=== PATIENT | female | born 1960 | race Caucasian/White ===

== ENCOUNTER 2018-02-26 10:38 | Emergency (ER) | payer SELFPAY ==
[~2018-02-26] VITALS: Wt 91.9 kg
[2018-02-26 10:45] VITALS: BP 140/74; PULSE 91; RESP 17
[2018-02-26] MEDS ORDERED: AZIT250T PO (11:25)
[2018-02-26] MEDS ORDERED: PROM6.2515 PO (11:25)
[2018-02-26] MEDS ORDERED: ALBU8.5H8 INH (11:25)
[2018-02-26] MEDS ORDERED: BENZ-6 PO (11:25)
[2018-02-26] MEDS ORDERED: DOCO2CRE3 TOP (11:25)
--- NOTE | 2018-02-26 12:49 | ERD ---
ER Documentation Chief Complaint Chief Complaint COUGH, CONGESTION, THROAT PAIN X2 WEEKS HPI 57-year-old female presenting with cough and vomiting. Patient has a runny nose and sore throat. She has had no changes in urination or bowel mood. Denies abdominal pain. No fevers documented however feels feverish. Denies use of antipyretics however has taken Robitussin. Denies medical problems. NKDA. Surgical history is fibroidectomy. Social history denies ROS All systems reviewed and are negative except as per history of present illness. Medications Home Meds Active Scripts Azithromycin* (Zithromax*) 250 Mg Tablet, 250 MG PO .ZPACK DIRECTED, #6 TAB TAKE 500 MG (2 TABS) THE FIRST DAY THEN 250 MG (1 TAB) DAYS 2-5 Prov:NONI PINEDA PA-C 02/26/18 Albuterol Sulfate* (Proair HFA*) 8.5 Gm Hfa.aer.ad, 2 PUFF INH Q4, #1 INHALER Prov:NONI PINEDA PA-C 02/26/18 Promethazine Hcl* (Promethazine Hcl* Syrup) 6.25 Mg/5 Ml Syrup, 6.25 MG PO Q6H PRN for COUGH, #100 ML Prov:NONI PINEDA PA-C 02/26/18 Benzonatate* (Tessalon Perle*) 100 Mg Capsule, 100 MG PO Q8H PRN for COUGH, #30 CAP Prov:NONI PINEDA PA-C 02/26/18 Docosanol (Abreva) 2 Gm Cream.gm., 1 APPLIC TOP 5 TIMES DAILY, #1 TUB Prov:NONI PINEDA PA-C 02/26/18 Allergies Allergies: Coded Allergies: No Known Allergy (Unverified , 02/26/18) PMhx/Soc Medical and Surgical Hx: pt denies Medical Hx, pt denies Surgical Hx Hx Alcohol Use: No Hx Substance Use: No Hx Tobacco Use: No Smoking Status: Never smoker FmHx Family History: No diabetes, No coronary disease, No other Physical Exam Vitals Vital Signs Date Temp Pulse Resp B/P (MAP) Pulse Ox O2 O2 Flow FiO2 Time Delivery Rate 02/26/18 98.5 91 17 140/74 98 10:45 (96) Physical Exam GENERAL: The patient is well-appearing, well-nourished, in no acute distress HEENT: Atraumatic. Conjunctivae are pink. Pupils equal, round, and reactive to light. There is no scleral icterus. Tympanic membranes clear bilaterally. Oropharynx clear. No nystagmus or photophobia. NECK: C-spine is soft and supple. There is no meningismus. There is no cervical lymphadenopathy. CHEST: Clear to auscultation bilaterally. There are no rales, wheezes or rhonchi. HEART: Regular rate and rhythm. No murmurs, clicks, rubs or gallops. No S3 or S4. Procedures/MDM MDM: 57-year-old female presenting with URI type symptoms. I have low suspicion for pneumonia. I have low suspicion for respiratory distress or hypoxia. I have low suspicion for meningitis or sepsis. Patient symptoms are likely viral. Patient is given prescription for antibiotics progress or worsen she may fill medications. Patient is otherwise told to take supportive medications. I do not feel blood work or imaging is indicated. Patient is discharged stricter precautions and told to follow-up with primary care. All questions answered at discharge Departure Diagnosis: Primary Impression: Upper respiratory infection Condition: Stable Patient Instructions: Preventing Common Respiratory Infections Referrals: [facility] YOU HAVE RECEIVED A MEDICAL SCREENING EXAM AND THE RESULTS INDICATE THAT YOU DO NOT HAVE A CONDITION THAT REQUIRES URGENT TREATMENT IN THE EMERGENCY DEPARTMENT. FURTHER EVALUATION AND TREATMENT OF YOUR CONDITION CAN WAIT UNTIL YOU ARE SEEN IN YOUR DOCTORS OFFICE WITHIN THE NEXT 1-2 DAYS. IT IS YOUR RESPONSIBILITY TO MAKE AN APPOINTMENT FOR FOLOW-UP CARE. IF YOU HAVE A PRIMARY DOCTOR --you should call your primary doctor and schedule an appointment IF YOU DO NOT HAVE A PRIMARY DOCTOR YOU CAN CALL OUR PHYSICIAN REFERRAL HOTLINE AT IF YOU CAN NOT AFFORD TO SEE A PHYSICIAN YOU CAN CHOSE FROM THE FOLLOWING [facility] CLINICS [facility] [id number] [facility] [address] [facility] [address] [facility] [address] [facility] [address] [facility]. [facility] [address] Additional Instructions: FOLLOW UP WITH YOUR PRIMARY CARE PHYSICIAN TOMORROW.Return to this facility if you are not improving as expected. NONI PINEDA PA-C Feb 26, 2018 12:49
== END 2018-02-26 11:42 | disposition home or self-care (01) ==
LOC: FTE 10:38
DX: J06.9 Acute upper respiratory infection, unspecified (principal)
CPT/HCPCS: 99283